=== PATIENT | male | born 1990 | race Caucasian/White ===

== ENCOUNTER 2021-08-29 00:12 | Emergency (ER) | payer MEDICAID ==
[~2021-08-29] VITALS: Ht 182.9 cm; Wt 70.0 kg
[2021-08-29 00:31] VITALS: BP 156/82
[2021-08-29] MEDS ORDERED: IBUP-2029 MT (03:22)
== END 2021-08-29 03:41 | disposition home or self-care (01) ==
LOC: ER 00:12
DX: S09.8XXA Other specified injuries of head, initial encounter (principal); Y08.89XA Assault by other specified means, initial encounter; Y93.9 Activity, unspecified; Y92.9 Unspecified place or not applicable
CPT/HCPCS: 99284